=== PATIENT | male | born 1975 | race Hispanic/Latino ===

== ENCOUNTER → 2024-07-09 | Outpatient (REF) | payer OTHER | LOC: US 11:41 | PROVIDERS: ATTEND Nurse Practitioner | DX: K74.69 Other cirrhosis of liver (principal); Z90.49 Acquired absence of other specified parts of digestive tract | CPT/HCPCS: 76700 ==

== ENCOUNTER → 2024-07-29 | Outpatient (REF) | payer OTHER ==
[~2024-07-29] MED LIST: IOPAMIDOL 370 MG/ML 100 ML INFUS..BTL INJ ONE
[2024-07-29 15:42] LABS: CREATININE, SERUM 0.78 mg/dL (0.72-1.25)
== END ==
LOC: CT 14:32
PROVIDERS: ATTEND Internal Medicine Gastroenterology
DX: Z90.49 Acquired absence of other specified parts of digestive tract (principal)
CPT/HCPCS: 36415; 74177; 82565; 84520; Q9967

== ENCOUNTER → 2024-08-20 | Outpatient (REF) | payer OTHER ==
[~2024-08-20] MED LIST changes: +DIATRIZOATE MEGL/DIATRIZOA SOD 30 ML BTL PO ONE
[2024-08-20 17:25] LABS: CREATININE, SERUM 0.75 mg/dL (0.72-1.25)
== END ==
LOC: CT 15:55
PROVIDERS: ATTEND Nurse Practitioner
DX: K29.70 Gastritis, unspecified, without bleeding (principal); K74.69 Other cirrhosis of liver; K59.09 Other constipation; Z90.49 Acquired absence of other specified parts of digestive tract; R93.89 Abnormal findings on diagnostic imaging of other specified body structures; K82.8 Other specified diseases of gallbladder
CPT/HCPCS: 36415; 74160; 82565; 84520; Q9963; Q9967